=== PATIENT | female | born 1960 | race Caucasian/White ===

== ENCOUNTER → 2018-03-31 | Outpatient (CLI) | payer OTHER ==
[2018-03-31 13:57] LABS: BASO % 0 % (0-3); EOS # 0.1 x10^3/uL (0.0-0.7); EOS % 1 % (0-3); HEMATOCRIT 41.3 % (36.0-47.0); HEMOGLOBIN 13.8 g/dL (12.0-15.5); LYMPH # 1.8 x10^3/uL (1.0-4.8); LYMPH % 36 % (24-48); MEAN CORPUSCULAR HEMOGLOBIN 32 pg (25-35); MEAN CORPUSCULAR HGB CONC 33 g/dL (31-37); MEAN CORPUSCULAR VOLUME 95 fL (79-100); MONO # 0.4 x10^3/uL (0.0-1.1); MONO % 7 % (0-9); NEUT # 2.9 x10^3uL (1.8-7.7); NEUT % 56 % (31-73); PLATELET COUNT 236 x10^3/uL (140-400); RED BLOOD COUNT 4.35 x10^6/uL (3.50-5.40); RED CELL DISTRIBUTION WIDTH 12.5 % (11.5-14.5); WHITE BLOOD COUNT 5.1 x10^3/uL (4.0-11.0)
[2018-03-31 14:16] LABS: ALBUMIN/GLOBULIN RATIO 1.1 (1.0-1.7); C-REACTIVE PROTEIN 0.6 mg/L (0-3.3); CREATININE 0.9 mg/dL (0.6-1.0); GFR 64.8; PHOSPHORUS 4.4 mg/dL (2.6-4.7); POTASSIUM 3.6 mmol/L (3.5-5.1); TOTAL BILIRUBIN 0.8 mg/dL (0.2-1.0); TOTAL PROTEIN 7.5 g/dL (6.4-8.2)
[2018-03-31 14:27] LABS: FREE T4 0.87 ng/dL (0.76-1.46); THYROID STIM HORMONE (TSH) 1.278 uIU/mL (0.358-3.74)
[2018-03-31 19:17] LABS: RHEUMATOID FACTOR <10.0 IU/mL (0.0-13.9)
[2018-03-31 20:14] LABS: CA 125 12.5 U/mL (0.0-38.1); ESTRADIOL LEVEL 86.8 pg/mL (.); HEMOGLOBIN A1C 5.5 % (4.8-5.6); PROGESTERONE <0.1 ng/mL (.); THYROPEROXIDASE ANTIBODY 11 IU/mL (0-34)
[2018-04-02 20:11] LABS: ANA INTERP Positive (.)
[2018-04-03 18:13] LABS: TESTOSTERONE TOTAL 24 ng/dL (3-41)
== END | disposition home or self-care (01) ==
LOC: LAB 08:06
PROVIDERS: ATTEND Obstetrics & Gynecology
DX: E03.9 Hypothyroidism, unspecified (principal); E78.00 Pure hypercholesterolemia, unspecified; N95.1 Menopausal and female climacteric states; E23.0 Hypopituitarism; E78.9 Disorder of lipoprotein metabolism, unspecified; N94.89 Other specified conditions associated with female genital organs and menstrual cycle; E55.9 Vitamin D deficiency, unspecified; D53.9 Nutritional anemia, unspecified; N91.2 Amenorrhea, unspecified; R53.81 Other malaise; R10.2 Pelvic and perineal pain; R53.83 Other fatigue
CPT/HCPCS: 36415; 80053; 80061; 82627; 82670; 82977; 83036; 83090; 83540; 83615; 84100; 84144; 84402; 84403; 84439; 84443; 84481; 84482; 84550; 85025; 85651; 86038; 86140; 86141; 86304; 86376; 86431; 86800

== ENCOUNTER → 2019-07-30 | Outpatient (CLI) | payer OTHER | END | disposition home or self-care (01) | LOC: LAB 15:38 | PROVIDERS: ATTEND Internal Medicine Gastroenterology | DX: Z01.818 Encounter for other preprocedural examination (principal); Z11.59 Encounter for screening for other viral diseases; R10.31 Right lower quadrant pain | CPT/HCPCS: C9803; U0003; 36415 ==

== ENCOUNTER → 2019-08-04 | Day surgery (SDC) | payer OTHER ==
[~2019-08-04] MED LIST: GLYCOPYRROLATE 1 MG/5 ML VIAL. ONE; IV RINGERS,LACTATED 1000ML 1,000 ML IV SCH; LIDOCAINE 2% PF 5 ML VIAL. ONE; PROPOFOL 10 MG/ML (20ML) VIAL. IV ONE
--- NOTE | 2019-08-04 07:22 | CONS ---
DATE OF CONSULTATION: 08/04/2019 REFERRING PHYSICIAN: Tricia Maldonado MD HISTORY OF PRESENT ILLNESS: A 59-year-old female whose past medical history is noncontributory, is seen for screening colon exam. Bowel habits are regular without diarrhea or constipation. There has been no melena and/or hematochezia. No family history of colon cancer is encountered. She has had some resolving right lower quadrant and right flank pain, which have improved since the office visit in early May. She is otherwise without additional complaints. PAST MEDICAL HISTORY: Noncontributory. ALLERGIES: None. MEDICATIONS: None. SOCIAL HISTORY: She is a social drinker, nonsmoker. MEDICATIONS: None. FAMILY HISTORY: Noncontributory. REVIEW OF SYSTEMS: Per records. PHYSICAL EXAMINATION: GENERAL: Reveals a well-nourished, well-developed female who is alert, cooperative, in no acute distress. VITAL SIGNS: Temperature is 97.5, pulse 65, respirations 20. LUNGS: Clear. CARDIOVASCULAR: Reveals an S1, S2 without S3, S4 or appreciable murmur. ABDOMEN: Reveals a soft abdomen, normal bowel sounds, without appreciable hepatosplenomegaly. IMPRESSION: Colorectal screening is warranted at this time. Risks and benefits of procedure including risk of hemorrhage and perforation during the operation have been discussed. The patient is willing to proceed. MARIOLA BERTRAND MD DR: BALDEV/ailin JOB#: [id number] / [id number]
[2019-08-04 08:15] VITALS: BP 105/62
--- NOTE | 2019-08-06 17:06 | PATHOLOGY ---
[facility] Accession Number: [id number] . 01 Material submitted: . cecum - CECAL POLYP . 01 Clinical history: . Screening . 02 Diagnosis: Colon biopsies, cecal polyp: - Tubular adenoma. ([facility] 08/06/2019) [facility] 08/06/2019 1250 Local . 02 Comment: There is no high-grade dysplasia or evidence of malignancy. ([facility] 08/06/2019) . 02 Electronically signed: . Nash Kern MD, Pathologist NPI- [id number] . 01 Gross description: . The specimen is received in formalin, labeled "Aylin Real, cecal polyp" and consists of multiple fragments of ogden tissue measuring 1.2 x 1.0 x 0.2 cm in aggregate which are entirely submitted in A1. ([facility]; 08/05/2019) [facility] 08/05/2019 1020 Local . 02 Pathologist provided ICD-10: D12.0 . 02 CPT . 758564 Specimen Comment: A courtesy copy of this report has been sent to [phone], [phone] Specimen Comment: [id number] Specimen Comment: Report sent to / DR ASH Performed at: 01 [facility] [address], [place], [place] [id number] MD Haroon Alvarez MD Phone: [phone] Performed at: 02 [facility] [address] [place], [place] [id number] MD Nash Kern MD Phone: [phone]
== END ==
LOC: ENDOS 06:09
PROVIDERS: ATTEND Internal Medicine Gastroenterology
DX: Z12.11 Encounter for screening for malignant neoplasm of colon (principal); D12.0 Benign neoplasm of cecum; K64.0 First degree hemorrhoids; Z72.89 Other problems related to lifestyle
CPT/HCPCS: 45385; 88305; J2704; J3490; 45380

== ENCOUNTER → 2019-11-16 | Outpatient (CLI) | payer SELFPAY ==
[2019-08-04 08:15] VITALS: BP 105/62
--- NOTE | 2019-11-16 11:43 | KCIC ---
CT for coronary artery calcium scoring, without IV contrast, 11/16/2019 11:37 AM INDICATION: Reason: CARDIOVASCULAR SCREENING, FAMILY HX. CAD / Spl. Instructions: / History: Technique: Noncontrast CT images through the coronary arteries was performed . Findings: No significant noncardiac findings are identified. Visual inspection of the coronary arteries: Demonstrates calcification involving the right coronary, left anterior descending, and circumflex arteries. The remaining coronary arteries are without discernible calcified plaque. The computer-generated calcium scoring utilizing AJ-130 criteria are as follows: Left Main Artery: 0. Left Anterior Descending Artery: 101. Left Circumflex Artery: 41. Right Coronary Artery: 3.5.. The total calcium score is 145.5 Impression: Your total calcium score is 140 5. A moderate amount of plaque is present. This correlates with heart disease, and a moderate to high risk for a myocardial infarction. Table: 0: No plaque is present. The chance of significant heart disease is less than 5%, and corresponds to a very low risk for a myocardial infarction. 1-10: A small amount of plaque is present. The chance of significant heart disease is less than 10%, and corresponds to a low risk for a myocardial infarction. 11-100: Plaque is present. This correlates with mild heart disease and a moderate risk for a myocardial infarction. 101-400: A moderate amount of plaque is present. This correlates with heart disease, and a moderate to high risk for a myocardial infarction. Over 400: A large amount of plaque is present. This correlates with a greater than 90% chance of a high grade stenosis. The risk for myocardial infarction is high. Electronically signed by: Mt Kaur MD (11/16/2019 11:40 AM) [id number]
== END | disposition home or self-care (01) ==
LOC: KCIC CT 09:01
PROVIDERS: ATTEND Internal Medicine Cardiovascular Disease
DX: Z13.6 Encounter for screening for cardiovascular disorders (principal); I25.10 Atherosclerotic heart disease of native coronary artery without angina pectoris; Z82.49 Family history of ischemic heart disease and other diseases of the circulatory system
CPT/HCPCS: 75571

== ENCOUNTER → 2020-01-17 | Outpatient (CLI) | payer OTHER ==
[2019-08-04 08:15] VITALS: BP 105/62
--- NOTE | 2020-01-17 17:21 | RAD ---
Ultrasound of thyroid gland 01/17/2020 CLINICAL HISTORY: Thyroid nodule. TECHNIQUE: A real-time ultrasound examination of the thyroid gland was performed. Multiple images were obtained. FINDINGS: The thyroid gland is mildly enlarged and heterogeneous. The right lobe of thyroid gland measures 4.7 x 2.3 x 1.8 cm in longitudinal, transverse, and AP dimensions. The left lobe of thyroid gland measures 4.2 x 1.7 x 1.8 cm in size. Multiple hypoechoic and complex nodules are seen scattered throughout both lobes of the thyroid gland consistent with a multinodular goiter. These measure 4 mm to 2.5 cm in size. The largest nodule involves the right aspect of the isthmus. It measures 2.5 cm in greatest diameter. It is predominantly solid and is slightly hypoechoic with an ultrasound appearance consistent with a TI- RADS category 4 moderately suspicious nodule. The second largest nodule involves the mid aspect of the left lobe of the thyroid gland. It is complex and measures 1.2 cm in size. Its ultrasound appearance is consistent with a TI-RADS category 2 nodule (not suspicious). IMPRESSION: Findings consistent with a multinodular goiter. A 2.5 cm solid nodule is seen involving the isthmus of the thyroid gland which has a moderately suspicious ultrasound appearance (TI RADS category 4). Ultrasound-guided fine-needle aspiration is recommended for further evaluation. Electronically signed by: Kane Ramires MD (01/17/2020 5:18 PM) [place] [id number]
== END ==
LOC: US 15:15
PROVIDERS: ATTEND Internal Medicine
DX: E04.2 Nontoxic multinodular goiter (principal)
CPT/HCPCS: 76536

== ENCOUNTER → 2020-02-09 | Outpatient (CLI) | payer OTHER ==
[2019-08-04 08:15] VITALS: BP 105/62
== END ==
LOC: LAB 08:57
PROVIDERS: ATTEND Internal Medicine Pulmonary Disease
DX: U07.1 COVID-19 (principal); R05 Cough; R50.9 Fever, unspecified; R51.9 Headache, unspecified; R09.81 Nasal congestion
CPT/HCPCS: U0003

== ENCOUNTER → 2021-03-22 | Outpatient (CLI) | payer OTHER ==
[2019-08-04 08:15] VITALS: BP 105/62
== END ==
LOC: LAB 12:04
PROVIDERS: ATTEND Internal Medicine Pulmonary Disease
DX: U07.1 COVID-19 (principal)
CPT/HCPCS: U0003; U0005